=== PATIENT | male | born 1990 | race Hispanic/Latino ===

== ENCOUNTER 2022-02-11 17:19 | Emergency (ER) | payer MEDICARE ==
[~2022-02-11] VITALS: Ht 167.6 cm; Wt 54.4 kg
[2022-02-11] MEDS ORDERED: KETOROLAC 15MG/ML VIAL (15MG/ML) IM ONE (18:00)
[2022-02-11 19:28] VITALS: BP 111/65
== END 2022-02-11 19:32 | disposition home or self-care (01) ==
LOC: EDH 17:19
DX: M79.641 Pain in right hand (principal); Z98.890 Other specified postprocedural states
CPT/HCPCS: 99283; 73130; 96372; J1885